=== PATIENT | female | born 1980 | race Caucasian/White ===

== ENCOUNTER → 2016-11-26 | Outpatient (CLI) | payer OTHER | LOC: HEART 5 10-28 11:00 | DX: R00.2 Palpitations (principal) ==

== ENCOUNTER 2016-12-23 16:57 | Emergency (ER) | payer OTHER ==
[2016-12-23 23:08] LABS: HEMOGLOBIN 11.6 gm/dl (12.3-15.3); RED BLOOD COUNT 4.34 M/UL (4.00-5.10); WHITE BLOOD COUNT 7.9 K/UL (4.5-11.0)
[2016-12-23 23:22] LABS: BUN/CREATININE RATIO 19 (0-10)
== END 2016-12-24 03:05 | disposition home or self-care (01) ==
LOC: ER1 16:57
PROVIDERS: Student in an Organized Health Care Education/Training Program
DX: N30.01 Acute cystitis with hematuria (principal); E03.9 Hypothyroidism, unspecified; Z79.899 Other long term (current) drug therapy
CPT/HCPCS: 36415; 80053; 81001; 83690; 84703; 85025; 87086; 96374; 99284; J2270; J7030

== ENCOUNTER 2021-04-03 18:03 | Emergency (ER) | payer OTHER ==
[~2021-04-03 18:03] MED LIST: AUGMENTIN 875-1 EACH PO; BENADRYL 25MG C25 MG PO; CARAFATE1 GM PO; CLARITIN10 MG PO; CYCLOBENZAPRINE10 MG PO; FLAGYL500 MG PO; IMITREX25 MG PO; INDERAL LA160 MG PO; LEVOTHYROXINE150 MCG PO; LEVOXYL137 MCG PO; LORATADINE10 MG PO; NAPROSYN500 MG PO; NAPROXEN500 MG PO; NORCO 7.5-3251 EACH PO; PREDNISONE 50 M50 MG PO; PROPRANOLOL HCL60 M1 PO; TOPAMAX50 MG PO; ZANTAC150 MG PO; ZOFRAN ODT 4 MG4 MG PO; ZOFRAN4 MG PO
[2021-04-03 18:39] LABS: HEMOGLOBIN 13.7 gm/dl (12.3-15.3); RED BLOOD COUNT 4.66 M/UL (4.00-5.10); WHITE BLOOD COUNT 3.6 K/UL (4.5-11.0)
[2021-04-03 19:00] LABS: BUN/CREATININE RATIO 11 (0-10)
== END 2021-04-03 22:46 | disposition home or self-care (01) ==
LOC: ER1 18:03
PROVIDERS: Emergency Medicine
DX: I47.1 Supraventricular tachycardia (principal); E03.9 Hypothyroidism, unspecified; R94.5 Abnormal results of liver function studies; R94.6 Abnormal results of thyroid function studies
CPT/HCPCS: 80053; 82550; 82553; 83874; 84439; 84443; 84484; 84703; 85025; 85379; 93005; 99285; J0153; J7030; Q9967

== ENCOUNTER 2021-04-10 11:46 | Emergency (ER) | payer OTHER ==
[~2021-04-10] VITALS: Ht 162.6 cm; Wt 124.7 kg
[2021-04-10 12:44] LABS: HEMOGLOBIN 14.2 gm/dl (12.3-15.3); RED BLOOD COUNT 4.8 M/UL (4.00-5.10); WHITE BLOOD COUNT 3.9 K/UL (4.5-11.0)
[2021-04-10 13:05] LABS: BUN/CREATININE RATIO 10 (0-10)
== END 2021-04-10 17:13 | disposition home or self-care (01) ==
LOC: ER1 11:46
PROVIDERS: Physician Assistant
DX: Z23 Encounter for immunization (principal); U07.1 COVID-19; J12.82 Pneumonia due to coronavirus disease 2019; Z90.49 Acquired absence of other specified parts of digestive tract
CPT/HCPCS: 71045; 80053; 82550; 82553; 83874; 84484; 85025; 93005; 99285; M0243

== ENCOUNTER 2021-04-12 07:22 | Inpatient (IN) | payer OTHER ==
[~2021-04-12] VITALS: Ht 162.6 cm; Wt 124.7 kg
[2021-04-12 07:58] LABS: HEMOGLOBIN 14.5 gm/dl (12.3-15.3); RED BLOOD COUNT 4.98 M/UL (4.00-5.10)
[2021-04-12 08:00] LABS: WHITE BLOOD COUNT 6.1 K/UL (4.5-11.0)
[2021-04-12 08:26] LABS: BUN/CREATININE RATIO 7 (0-10)
[2021-04-13 07:57] LABS: HEMOGLOBIN 12.8 gm/dl (12.3-15.3); RED BLOOD COUNT 4.45 M/UL (4.00-5.10); WHITE BLOOD COUNT 4.5 K/UL (4.5-11.0)
[2021-04-13 08:46] LABS: BUN/CREATININE RATIO 6 (0-10)
[2021-04-13] MEDS ORDERED: CIPRO500 MG PO (13:09)
[2021-04-13] MEDS ORDERED: LOPRESSOR 25 MG25 MG PO (13:09)
--- NOTE | 2021-04-13 15:35 | NUR ---
2024 - 4879 PT SHOWING SVT 170'S ON MONITOR. B/P 106/61, O2 SAT 97%. PT REPORTS "FLUTTERING" IN CHEST. STAT EKG OBTAINED. NOTIFIED. METOPROPOL GIVEN IV PER NEW ORDER. HR NOW SR 80-90'S ON MONITOR AND PT REPORTS RELIEF OF FLUTTERING.
== END 2021-04-13 13:05 | disposition home or self-care (01) | DRG 308 ==
LOC: ER1 07:22 → CDU 11:05 → MED SURG 4 11:05
PROVIDERS: Emergency Medicine; Physician Assistant; ADMIT Internal Medicine
PROC: 8E0ZXY6 Isolation (ICD-10-PCS; principal; 2021-04-12)
DX: I47.1 Supraventricular tachycardia (principal); U07.1 COVID-19; J12.82 Pneumonia due to coronavirus disease 2019; N30.00 Acute cystitis without hematuria; E87.6 Hypokalemia; E66.01 Morbid (severe) obesity due to excess calories; I95.9 Hypotension, unspecified; K76.0 Fatty (change of) liver, not elsewhere classified; I08.1 Rheumatic disorders of both mitral and tricuspid valves; I27.20 Pulmonary hypertension, unspecified; E03.9 Hypothyroidism, unspecified; I25.10 Atherosclerotic heart disease of native coronary artery without angina pectoris; Z98.51 Tubal ligation status; Z90.49 Acquired absence of other specified parts of digestive tract; Z68.37 Body mass index [BMI] 37.0-37.9, adult; Z80.9 Family history of malignant neoplasm, unspecified
CPT/HCPCS: ECHO; 36415; 71045; 80048; 80053; 81001; 82550; 82553; 83605; 83690; 83735; 84132; 84439; 84443; 84484; 85025; 85610; 85730; 93005; 93306; 96374; 99285; J0153; J0696; J1650; Q9967; U0002

== ENCOUNTER → 2021-05-29 | Outpatient (CLI) | payer OTHER ==
[~2021-05-29] MED LIST changes: +CIPRO500 MG PO; +LOPRESSOR 25 MG25 MG PO
[2021-05-29 15:10] LABS: HEMOGLOBIN 12.8 gm/dl (12.3-15.3); RED BLOOD COUNT 4.3 M/UL (4.00-5.10); WHITE BLOOD COUNT 6.4 K/UL (4.5-11.0)
[2021-05-29 15:35] LABS: BUN/CREATININE RATIO 19 (0-10)
== END ==
LOC: LAB 14:32
PROVIDERS: Internal Medicine Cardiovascular Disease
DX: R00.2 Palpitations (principal); I47.1 Supraventricular tachycardia; R91.8 Other nonspecific abnormal finding of lung field
CPT/HCPCS: 36415; 71046; 80048; 85025

== ENCOUNTER 2021-05-31 09:35 | Outpatient (CLI) | payer OTHER ==
[~2021-05-31] VITALS: Ht 157.5 cm; Wt 117.9 kg
== END 2021-06-01 10:30 | disposition home or self-care (01) ==
LOC: CATH 09:35 → CDU 16:05 → PROG CARE 16:05 → CATH 06-01 10:30
DX: I47.1 Supraventricular tachycardia (principal); E03.9 Hypothyroidism, unspecified; D64.9 Anemia, unspecified; E66.9 Obesity, unspecified; Z68.42 Body mass index [BMI] 45.0-49.9, adult; Z79.899 Other long term (current) drug therapy
CPT/HCPCS: 93005; 93609; 93620; 93623; 99152; 99153; C1730; C1733; C1766; J1644; J2250; J3010; J7040; J7050

== ENCOUNTER → 2022-01-15 | Outpatient (CLI) | payer OTHER | LOC: HEART 5 11:00 | DX: R00.2 Palpitations (principal); R00.0 Tachycardia, unspecified ==